=== PATIENT | female | born 1960 ===

== ENCOUNTER 2017-05-21 10:57 | Outpatient (CLI) | payer MEDICARE | END 2017-05-21 10:58 | disposition home or self-care (01) | LOC: BICRAD 10:57 | PROVIDERS: ATTEND Family Medicine | DX: M25.552 Pain in left hip (principal); M25.562 Pain in left knee; M54.5 Low back pain; M47.896 Other spondylosis, lumbar region; M16.12 Unilateral primary osteoarthritis, left hip | CPT/HCPCS: 72100 ==